=== PATIENT | male | born 1950 ===

== ENCOUNTER → 2021-11-12 08:08 | Outpatient (BNVA) | payer OTHER, SELFPAY | PROVIDERS: PCP Nurse Practitioner; Visit Provider Nurse Practitioner Family ==

== ENCOUNTER 2021-12-25 06:08 | Outpatient (REF) | payer OTHER, SELFPAY ==
--- NOTE | ~2021-12-25 | FL_ITS ---
EXAMINATION: XR FLUOROSCOPY WITH IMAGES CLINICAL INFORMATION: Back pain. COMPARISON: None. TECHNIQUE: Fluoroscopy performed by Violette Montelongo. Fluoroscopy time: 0.1 minutes DAP: 1.77 Gycm2 Images: 1 FINDINGS: There are needles positioned overlying the right L3-L4 and L5 pedicles with contrast opacifying the soft tissues. FL/FL guidance in treatment room IMPRESSION: Fluoroscopy was provided to referring physician for pain management.
== END 2021-12-25 06:09 | disposition home or self-care (01) ==
LOC: HO.RADIR 06:08
PROVIDERS: Visit Provider Internal Medicine
DX: G58.8 Other specified mononeuropathies (principal); M54.50 Low back pain, unspecified; M54.6 Pain in thoracic spine
CPT/HCPCS: 64493; 64494; J1020

== ENCOUNTER → 2022-01-03 08:04 | Outpatient (BNVA) | payer OTHER, SELFPAY | PROVIDERS: PCP Nurse Practitioner; Visit Provider Nurse Practitioner Family | DX: M47.816 Spondylosis without myelopathy or radiculopathy, lumbar region (principal); M51.37 Other intervertebral disc degeneration, lumbosacral region | CPT/HCPCS: 99212 ==